=== PATIENT | female | born 1970 | race Caucasian/White ===

== ENCOUNTER 2023-12-23 12:53 | Emergency (ER) | payer MEDICAID ==
[~2023-12-23] VITALS: Ht 167.6 cm; Wt 68.0 kg
[2023-12-23] MEDS ORDERED: BENZONATATE 100 MG CAPSULE PO ONE (14:11)
[2023-12-23] MEDS ORDERED: ACETAMINOPHEN 325 MG TABLET ONE (14:12)
[2023-12-23] MEDS ORDERED: IBUPROFEN 400 MG TABLET ONE (14:12)
[2023-12-23] MEDS: ACETAMINOPHEN 325 MG TABLET PO ONE (14:14)
[2023-12-23] MEDS: IBUPROFEN 400 MG TABLET PO ONE (14:14)
[2023-12-23] MEDS: BENZONATATE 100 MG CAPSULE PO PRN (14:14)
[2023-12-23 16:03] LABS: BASOPHILS % (AUTO) 0.7 % (0.0-2.0); EOSINOPHILS # (AUTO) 0.2 K/uL (0.0-0.7); EOSINOPHILS % (AUTO) 3.6 % (0.0-6.0); HEMATOCRIT 38 % (33-45); HEMOGLOBIN 12.9 g/dL (11.5-14.8); LYMPHOCYTES # (AUTO) 1.8 K/uL (0.8-4.8); LYMPHOCYTES % (AUTO) 27.1 % (20.0-44.0); MEAN CORPUSCULAR HEMOGLOBIN 33 PG (26.0-33.0); MEAN CORPUSCULAR HGB CONC 34 g/dl (31.0-36.0); MEAN CORPUSCULAR VOLUME 95 fL (82-100); MONOCYTES # (AUTO) 0.3 K/uL (0.1-1.30); MONOCYTES % (AUTO) 4.6 % (2.0-12.0); NEUTROPHILS # (AUTO) 4.3 K/uL (1.8-8.9); PLATELET COUNT (AUTO) 264 K/uL (150-450); RED BLOOD CELL COUNT(AUTO) 3.97 MIL/uL (4.0-5.2); RED CELL DISTRIBUTION WIDTH 12.1 % (11.5-15.0); WHITE BLOOD COUNT (AUTO) 6.7 K/uL (4.3-11.0)
[2023-12-23 16:12] LABS: CALCIUM, SERUM 8.7 mg/dL (8.5-10.1); CREATININE 0.6 mg/dL (0.6-1.3); POTASSIUM 3.8 mmol/L (3.5-5.1)
[2023-12-23] MEDS ORDERED: IBUP-1953 PO (16:42)
[2023-12-23] MEDS ORDERED: BENZ-13 PO (16:42)
[2023-12-23] MEDS ORDERED: ACET325C7 PO (16:42)
[2023-12-23 17:03] VITALS: BP 138/88; TEMP 98.5
== END 2023-12-23 17:04 | disposition home or self-care (01) ==
LOC: ER 12:58
DX: J06.9 Acute upper respiratory infection, unspecified (principal); J02.9 Acute pharyngitis, unspecified; R07.89 Other chest pain
CPT/HCPCS: 36415; 71045-TC; 80048-TC; 84484-TC; 85025-TC